=== PATIENT | female | born 1940 | race Caucasian/White ===

== ENCOUNTER 2016-07-02 18:51 | Emergency (ER) | payer OTHER ==
--- NOTE | 2016-07-02 21:42 | DIAGNOSTIC IMAGING REPORT ---
PROCEDURE: CTA THORAX WITH CONTRAST INDICATION: SOB, ELEVATED D-DIMER, +RISK FACTORS TECHNIQUE: 88 ml of Isovue 370 was injected intravenously and axial images were obtained of the entire thorax with 3D sagittal and coronal MIP reconstructions. COMPARISON: Chest x-ray 07/03/2016. FINDINGS: No evidence of pulmonary emboli. Diffuse moderate to severe emphysema. There is ground-glass appearance throughout both or both lungs with thickened septa and mild bilateral pleural effusions. 7 mm right middle lobe and 5 mm left upper lobe nodules. Normal airways. Mild mediastinal and bilateral hilar adenopathy. There is no aortic dissection or aneurysm. Mild coronary atherosclerosis. Normal heart size with a small pericardial effusion versus thickening. Mild hiatal hernia. Mild degenerative changes of the spine. IMPRESSION: 1. CHF with pulmonary edema and bilateral pleural effusions 2. Right middle and left upper lobe nodules. Recommend follow-up CT scan in 6 months 3. Emphysema 4. Mild hiatal hernia. 5. Results discussed with Dr. Lino
--- NOTE | 2016-07-02 21:43 | DIAGNOSTIC IMAGING REPORT ---
PROCEDURE: XR CHEST 1 VIEW INDICATION: SOB TECHNIQUE: Portable AP view 07:48 p.m. COMPARISON: None. FINDINGS: Mild diffuse alveolar opacity with small bilateral pleural effusions. Normal heart size. Minor left basilar atelectasis. No suspicious osseous lesions. IMPRESSION: 1. CHF/fluid overload with mild bibasilar atelectasis
--- NOTE | 2016-07-02 21:44 | DIAGNOSTIC IMAGING REPORT ---
PROCEDURE: US VENOUS - BILATERAL EXT INDICATION: SOB, RECENT HOSPITALIZATION, RECENT LONG CARE RIDE FROM [place] TECHNIQUE: Color Doppler duplex imaging of the deep and superficial venous system without and with compression. COMPARISON: None. FINDINGS: RIGHT LOWER EXTREMITY: Deep and superficial venous system of the right lower extremity is within normal limits. There is no evidence of deep vein thrombosis or superficial thrombophlebitis. LEFT LOWER EXTREMITY: Deep and superficial venous system of the left lower extremity is within normal limits. There is no evidence of deep vein thrombosis or superficial thrombophlebitis. IMPRESSION: 1. Negative venous ultrasound of the bilateral lower extremities.
--- NOTE | 2016-07-02 22:16 | ED ORDER SUMMARY ---
..... Patient: ANURAG MUÑIZ OrderSheet [facility] VisitID: [id number] [address] [place] [address] 75y, F Registration Date/Time: 07/02/2016 ORDER SHEET Weight: 55.7 kg (stated) Allergies: No Known Drug Allergy GENERAL ORDERS: Chest 1V Urgent (19:07/02/2016 Tate Valdovinos) (Ack 19:10 LMuller) (19:44 EHassan R.N.) Energy Systems Laboratory Director (Continuous) (CP) (19:07/02/2016 Ttae Valdovinos) (19:05 Mary Anne R.N.) CBC w Diff Urgent (:07/02/2016 Tate Valdovinos) (Ack 19:10 LMuller) (19:44 EHjosén R.N.) CMP Urgent (:07/02/2016 Tate Valdovinos) (Ack 19:10 LMuller) (19:44 EHjosén R.N.) UA-Culture if indicated Urgent (:07/02/2016 Tate Valdovinos) (Ack 19:10 LMuller) (20:04 CHernandez R.N.) PT with INR Urgent (:07/02/2016 Tate Valdovinos) (Ack 19:10 LMuller) (19:44 Mary Anne R.N.) PTT Urgent (:07/02/2016 Tate Valdovinos) (Ack 19:10 LMuller) (19:44 Cuban R.N.) D-Dimer Urgent (19:07/02/2016 Tate Valdovinos) (Ack 19:10 LMuller) (19:44 Cuban R.N.) Troponin-I Urgent (:07/02/2016 Tate Valdovinos) (Ack 19:10 LMuller) (19:44 Cuban R.N.) BNP Urgent (19:07/02/2016 Tate Valdovinos) (Ack 19:10 LMuller) (19:44 Mary Anne R.N.) Pulse oximeter (:07/02/2016 Tate Valdovinos) (19:05 Mary Anne R.N.) EKG - ER Stat (19:01 07/02/2016 Tate Valdovinos) (19:05 SIDNEYassamichelle R.N.) US Venous Bilat Urgent (19:37 07/02/2016 Tate Valdovinos) (Ack 19:56 Froilanekimana) (21:12 EHassan R.N.) CTA Thorax w Cont (No) (N/A) Urgent (20:30 07/02/2016 Tate Valdovinos) (Ack 20:50 Tala) (21:12 EHassan R.N.) Troponin-I Urgent (21:19 07/02/2016 Tate Valdovinos) (Ack 21:25 Tala) (21:37 EHassan R.N.) MEDICATION ORDERS: IV FLUIDS: IV Saline Lock (19:01 07/02/2016 Tate Valdovinos) (19:06 SIDNEYassamichelle R.N.) Morphine IV 2 mg (HIGH ALERT MEDICATION, NOW) (19:43 07/02/2016 Tate Valdovinos) (Hold 20:10 EHassamichelle R.N.) Ativan IV 0.5 mg (HIGH ALERT MEDICATION, NOW) (20:20 07/02/2016 Mary Anne R.N. verbal order read back to Tate Valdovinos) (20:25 EHassan R.N.) IV NS : initial bolus 500 mL (1000 mL/hr), then none - for X1 (NOW) (20:31 07/02/2016 Tate Valdovinos) (20:47 EHassan R.N.) ORDER SHEET NOTES: [Electronically signed by Rhoda Hong R.N. (22:36 07/02/2016)] [Electronically signed by Tavon Lino Dr. (02:31 07/03/2016)] [Electronically locked/signed by Rhoda Hong R.N. (22:36 07/02/2016)]
--- NOTE | 2016-07-02 22:16 | ED ORDER SUMMARY ---
..... Patient: ANURAG MUÑIZ OrderSheet [facility] VisitID: [id number] [address] [place] [address] 75y, F Registration Date/Time: 07/02/2016 ORDER SHEET Weight: 55.7 kg (stated) Allergies: No Known Drug Allergy GENERAL ORDERS: Chest 1V Urgent (19:07/02/2016 Tate Valdovinos) (Ack 19:10 LMuller) (19:44 EHassan R.N.) Acquisitions Editor (Continuous) (CP) (19:07/02/2016 Tate Valdovinos) (19:05 Mary Anne R.N.) CBC w Diff Urgent (:07/02/2016 Tate Valdovinos) (Ack 19:10 LMuller) (19:44 EHjosén R.N.) CMP Urgent (:07/02/2016 Tate Valdovinos) (Ack 19:10 LMuller) (19:44 EHjosén R.N.) UA-Culture if indicated Urgent (:07/02/2016 Tate Valdovinos) (Ack 19:10 LMuller) (20:04 CHernandez R.N.) PT with INR Urgent (:07/02/2016 Tate Valdovinos) (Ack 19:10 LMuller) (19:44 Mary Anne R.N.) PTT Urgent (:07/02/2016 Tate Valdovinos) (Ack 19:10 LMuller) (19:44 Cuban R.N.) D-Dimer Urgent (19:07/02/2016 Tate Valdovinos) (Ack 19:10 LMuller) (19:44 Cuban R.N.) Troponin-I Urgent (:07/02/2016 Tate Valdovinos) (Ack 19:10 LMuller) (19:44 Cuban R.N.) BNP Urgent (19:07/02/2016 Tate Valdovinos) (Ack 19:10 LMuller) (19:44 Mary Anne R.N.) Pulse oximeter (:07/02/2016 Tate Valdovinos) (19:05 Mary Anne R.N.) EKG - ER Stat (19:01 07/02/2016 Tate Valdovinos) (19:05 SIDNEYassamichelle R.N.) US Venous Bilat Urgent (19:37 07/02/2016 Tate Valdovinos) (Ack 19:56 Froilanekimana) (21:12 EHassan R.N.) CTA Thorax w Cont (No) (N/A) Urgent (20:30 07/02/2016 Tate Valdovinos) (Ack 20:50 Tala) (21:12 EHassan R.N.) Troponin-I Urgent (21:19 07/02/2016 Tate Valdovinos) (Ack 21:25 Tala) (21:37 EHassan R.N.) MEDICATION ORDERS: IV FLUIDS: IV Saline Lock (19:01 07/02/2016 Tate Valdovinos) (19:06 SIDNEYassamichelle R.N.) Morphine IV 2 mg (HIGH ALERT MEDICATION, NOW) (19:43 07/02/2016 Tate Valdovinos) (Hold 20:10 EHassamichelle R.N.) Ativan IV 0.5 mg (HIGH ALERT MEDICATION, NOW) (20:20 07/02/2016 Mary Anne R.N. verbal order read back to Tate Valdovinos) (20:25 EHassan R.N.) IV NS : initial bolus 500 mL (1000 mL/hr), then none - for X1 (NOW) (20:31 07/02/2016 Tate Valdovinos) (20:47 EHassan R.N.) ORDER SHEET NOTES: [Electronically signed by Rhoda Hong R.N. (22:36 07/02/2016)] [Electronically signed by Tavon Lino Dr. (02:31 07/03/2016)] [Electronically locked/signed by Rhoda Hong R.N. (22:36 07/02/2016)]
--- NOTE | 2016-07-02 22:16 | ED CLINICAL REPORT ---
Clinical Report - Physicians/Mid Levels [facility] [address] [place] [address] 07/02/2016 18:53 Patient: ANURAG MUÑIZ Time Seen: 1855. Arrived- By private vehicle. Historian- patient. HISTORY OF PRESENT ILLNESS Chief Complaint: CHEST PAIN. Is still present. It was abrupt in onset and has been intermittent but is not gone now. At its maximum, severity described as moderate. When seen in the E.D., it was almost gone. Modifying factors- worsened by exertion and deep breaths. Relieved by rest. It is described as pressure and it is described as located in the central chest area. No nausea, vomiting or diaphoresis. She has had difficulty breathing. (recent move from [place]. was admitted to the ICU and intubated for 5 days because of respiratory failure just over a month ago. also with history of GI bleed and anemia.). Similar symptoms previously: (a few times). Recent medical care: Not recently seen/assessed. REVIEW OF SYSTEMS All systems otherwise negative, except as recorded above. PAST HISTORY See nurses notes. Pneumonia. COPD - Chronic Obstructive Pulmonary Disease. UTI - Urinary Tract Infection. Restless Legs Syndrome. SURGERIES: Carpal Tunnel Surgery. Cholecystectomy. Hysterectomy. Tonsillectomy. -. SOCIAL HISTORY Smoker- current status unknown. No alcohol use or drug use. Recent travel- (moved from [place] recently). Is an out of state resident. ADDITIONAL NOTES The nursing notes have been reviewed. PHYSICAL EXAM Vital Signs: 07/02/2016 19:03 BP: 117/47. HR: 73. RR: 32. O2 saturation: 98%. Temp: 98.2 F. Pain level now: 5/10. Appearance: Alert. Oriented X3. No acute distress. No marfanoid habitus. Eyes: Pupils equal, round and reactive to light. Eyes normal inspection. ENT: Ears normal. Nose normal. Pharynx normal. Neck: Normal inspection. Neck supple. CVS: Normal heart rate and rhythm. Heart sounds normal. Pulses normal. Respiratory: No respiratory distress. Breath sounds normal. Chest nontender. No rales, rhonchi or wheezes. Abdomen: Soft and nontender. Bowel sounds normal. No mass. Skin: Skin warm and dry. Normal skin color. No rash. Normal skin turgor. Extremities: Extremities exhibit normal ROM. No lower extremity edema. Neuro: Oriented X 3. No motor deficit. No sensory deficit. LABS, X-RAYS, AND EKG EKG: No acute ischemia. Normal sinus rhythm. Rate: 74. Normal P waves. Normal TESS. Normal QRS complex. LVH. Normal axis. Normal ST and T waves, QT and QTc. LVH. Normal sinus. The study has been interpreted contemporaneously. The study has been independently viewed by me. The EKG appears to be a good tracing. Chest X-ray: (1. CHF/fluid overload with mild bibasilar atelectasis). Views: AP. Technique: good. The X-rays were interpreted by the radiologist and discussed with the radiologist. Chest CT: (1. CHF with pulmonary edema and bilateral pleural effusions 2. Right middle and left upper lobe nodules. Recommend follow-up CT scan in 6 months 3. Emphysema 4. Mild hiatal hernia.). Chest CT performed with contrast. Prior studies were not available for comparison. The study was interpreted by the radiologist and discussed with the radiologist. Lower Extremity Sonography: 1. Negative venous ultrasound of the bilateral lower extremities. The exam was performed by a diamond powder technician. The study was interpreted by the radiologist and discussed with the radiologist. Prior studies were not available for comparison. Laboratory Tests: UA-Culture if indicated: (NIA: 07/02/2016 20:00) ( MsgRcvd 07/02/2016 20:31) Final results Test Result Flag Units (Reference) URINE COLOR YELLOW URINE APPEARANCE CLEAR URINE GLUCOSE NEGATIVE (NEGATIVE) URINE BILIRUBIN NEGATIVE (NEGATIVE) URINE KETONE NEGATIVE (NEGATIVE) URINE SPECIFIC GRAVITY 1.010 (1.010-1.030) URINE PH 7.5 (5.0-8.0) URINE PROTEIN NEGATIVE (NEGATIVE) URINE UROBILINOGEN 0.2 EU/dL (0.2-1.0) URINE NITRITE NEGATIVE (NEGATIVE) URINE BLOOD TRACE-INTACT (NEGATIVE) URINE LEUK ESTERASE POSITIVE (NEGATIVE) URINE RBC NONE SEEN rbc/hpf (0-1) URINE WBC 5-10 wbc/hpf (0-1) URINE EPITHELIAL CELLS 1-3 EPI/hpf (0-5) URINE BACTERIA TRACE (<1+) (NONE SEEN) URINE COMMENT CULTURE INDICATED URINE CULTURES ARE SET-UP BASED ON THE FOLLOWING CRITERIA:POSITIVE NITRITEPOSITIVE LEUKOCYTE ESTERASEGREATER THAN 10 WHITE BLOOD CELLSMODERATE (2+) OR GREATER BACTERIA CBC w Diff: (NIA: 07/02/2016 19:05) ( [facility] 07/02/2016 19:18) Final results Test Result Flag Units (Reference) WHITE BLOOD COUNT 8.8 K/uL (4.5-11.5) RED BLOOD COUNT 2.86 L M/uL (4.00-5.20) HEMOGLOBIN 8.7 L gm/dL (12.0-16.0) HEMATOCRIT 26.7 L % (36.0-46.0) MEAN CELL VOLUME 93 fL (80-100) MEAN CORPUSCULAR HGB 31 pg (26-34) MEAN CORPUSCULAR HGB CONC 33 g/dL (31-37) RED CELL DISTRIBUTION WIDTH 15.9 H % (11.6-14.8) PLATELET COUNT 463 H K/uL (150-400) NEUTROPHIL % 57.4 % (50-75) LYMPH % 27.9 % (25-40) MONO % 13.3 % (3-14) EOSINOPHIL % 1.0 % (0-4) BASOPHIL % 0.4 % (0-2) PT with INR: (NIA: 07/02/2016 19:05) ( [facility] 07/02/2016 19:34) Final results Test Result Flag Units (Reference) INR 1.0 (0.8-1.2) Low Intensity Therapy: INR 1.5-2.0 PT range 18.5-23.1Mod.Intensity Therapy: INR 2.0-3.0 PT range 23.1-31.5High Intensity Therapy: INR 2.5-3.5 PT range 27.4-35.5High Intensity Therapy 2: INR 3.0-4.0 PT range 31.5-39.3 APTT 29 SECONDS (24-34) D-DIMER QUANTITATIVE 0.76 H ug/mLFEU (0.27-0.52) The primary value of this quantitative assay relates toits negative predictive value (i.e. exclusion) of pulmonaryembolism/deep vein thrombosis/DIC.Elevated levels of d-dimer may also occur with:, age, cancer, inflammation, liver disease,post-op, infection, hematoma, coronary disease, peripheralarteriopathy, bleeding disorders and thrombolytic treatment.Results should be correlated with other clinical andradiological data.Testing Methodology: Latex Immunoassay Troponin-I: (NIA: 07/02/2016 21:20) ( [facility] 07/02/2016 22:00) Final results Test Result Flag Units (Reference) TROPONIN I <0.05 ng/mL (0.00-1.5) TROPONIN REFERENCE RANGE:<0.1 NEGATIVE0.1-1.5 INDETERMINANT>1.5 POSITIVE BNP: (NIA: 07/02/2016 19:05) ( [facility] 07/02/2016 19:45) Final results Test Result Flag Units (Reference) B-TYPE NATRIURETIC PEPTIDE 161 H pg/ml (5-100) CMP: (NIA: 07/02/2016 19:05) ( [facility] 07/02/2016 19:43) Final results Test Result Flag Units (Reference) GLUCOSE 93 mg/dL (70-110) BUN 21 H mg/dL (7-18) CREATININE 1.0 mg/dL (0.6-1.3) Estimated GFR 57.45 mL/min Estimated GFR- >60 mL/min Note: Persistent reduction over 3 months in eGFR<60 mL/min/1.73 m2 defines CKD. Patients with eGFR values>=60 mL/min/1.73 m2 may also have CKD if evidence ofpersistent proteinuria. Additional information may be foundat www.kidney.org. SODIUM 140 mmol/L (136-145) POTASSIUM 4.3 mmol/L (3.5-5.1) CHLORIDE 105 mmol/L (98-107) CARBON DIOXIDE 24 mmol/L (21-32) CALCIUM 8.7 mg/dL (8.5-10.1) TOTAL PROTEIN 7.1 g/dL (6.4-8.2) ALBUMIN 3.4 g/dL (3.3-5.0) BILIRUBIN, TOTAL 0.5 mg/dL (0.0-1.0) ALKALINE PHOSPHATASE 66 U/L (46-116) AST (SGOT) 16 U/L (15-37) ALT (SGPT) 21 U/L (12-78) TROPONIN I <0.05 ng/mL (0.00-1.5) TROPONIN REFERENCE RANGE:<0.1 NEGATIVE0.1-1.5 INDETERMINANT>1.5 POSITIVE . PROGRESS AND PROCEDURES Course of Care: 22:10 07/02/16. H&P from Dr. Hartman confirmed by my own and agree with his findings. No PE/DVT and CE's neg x 2. Pt has cardiology f/u. Pt is currently pain free. Disposition: Discharged home in good and improved condition. Condition: good. CLINICAL IMPRESSION Pulmonary nodule right middle lobe and left upper lobe. Atypical chest pain .12 lead EKG performed. INSTRUCTIONS Your Current Medications: CONTINUE TAKING THE FOLLOWING MEDICATIONS: Advair Diskus Inhalation. Albuterol Sulfate ER Oral. Lisinopril Oral. Spiriva HandiHaler Inhalation. TraZODone HCl Oral. Prescription Medications: Vistaril 50 mg: take 1 orally every 6 hours as needed for anxiety. Dispense twenty (20). No refill. Substitution is permissible. Follow-up: Follow up with your doctor in about two days. Call for an appointment. Blood pressure screening was not performed during this visit because the patient has an active diagnosis of hypertension. (Electronically signed by Tavon Lino Dr. 07/03/2016 2:31)
--- NOTE | 2016-07-02 22:16 | ED NURSING NOTES ---
Clinical Report - Nurses [facility] [address] [place] [address] 07/02/2016 18:53 Patient: ANURAG MUÑIZ TRIAGE Triage time 1901 PM. Acuity: LEVEL 2. Chief Complaint: CHEST PAIN and DISCOMFORT and (SOB). Alert. No acute distress. SEPSIS SCREEN: Sepsis Screen. Negative (no infection suspected/documented). EZE COMA SCORE: Eze Coma Scale: 15- eyes open spontaneously (4); best verbal response- oriented x 4 (5); best motor response- obeys commands (6). --19:47 Rhoda Hong R.N. 19:03 07/02/16. BP: 117/47 (regular adult cuff) taken on the left arm, via an automated monitor, while sitting. HR: 73. RR: 32. O2 saturation: 98%. Temp: 98.2 F (oral). Pain level now: 510. --19:47 Rhoda Hong R.N. Weight: 55.7 kg stated. Height/Length: 64 inches Per Patient. BMI: 21.1. --19:07 Rhoda Hong R.N. Medications Advair Diskus Inhalation. --19:10 Rhoda Hong R.N. Spiriva HandiHaler Inhalation. --19:10 Rhoda Hong R.N. Lisinopril Oral. --19:10 Rhoda Hong R.N. TraZODone HCl Oral. --19:11 Rhoda Hogn R.N. Albuterol Sulfate ER Oral. --19:11 Rhoda Hong R.N. Medication/allergy information source: the patient. --19:47 Rhoda Hong R.N. Allergies No Known Drug Allergy. --19:08 Rhoda Hong R.N. History Arrived by private vehicle. Historian: patient and family. Primary physician (Dr. Brian Tripathi). ( Pt has been feeling "lousy" Pt states in May was hospitalized for pneumonia and "intubated and was there for 10 days and was told she had some sort of heart disease" unsure of what type and is getting worked up here (has an appointment in August" Pt has been experiencing CP, SOB and jaw pain for a couple of days. Pt does seem very anxious at times and burst of crying when speaking to her. Pt states now having no pain/CP. Pt feels "labored breathing" Here for further evaluation). Onset. (3 days). She has had difficulty breathing. No nausea, vomiting, fever or cough. Treatment GYN: None. PAST MEDICAL HX: Immunizations: up-to-date. SOCIAL HX: Former smoker, end date 05/2016. No alcohol use or drug use. ABUSE ASSESSMENT: No report of abuse. SELF HARM ASSESSMENT: A self harm assessment was performed. The patient answered "no" to the question "Do you have thoughts of harming or killing yourself?" and "Have you recently had thoughts about harming or killing others?". FALL RISK ASSESSMENT: Fall risk assessment completed. No fall risk identified. NUTRITIONAL RISK ASSESSMENT: The nutritional risk assessment revealed no deficiencies. FUNCTIONAL ASSESSMENT: Functional assessment: no impairments noted. LEARNING NEEDS ASSESSMENT: The learning needs assessment revealed no barriers. --19:47 Rhdoa Hong R.N. PROBLEMS: Pneumonia. COPD - Chronic Obstructive Pulmonary Disease. UTI - Urinary Tract Infection. Immunizations. --19:11 Rhoda Hong R.N. Restless Legs Syndrome. --21:54 Rhoda Hong R.N. ADDITIONAL SURGERIES: Carpal Tunnel Surgery. Cholecystectomy. Hysterectomy. Tonsillectomy. --19:12 Rhoda Hong R.N. Interventions ID band on patient. --19:47 Rhoda Hong R.N. PHYSICAL ASSESSMENT To room via wheelchair. GENERAL / NEURO / PSYCH: Alert. Oriented X 4. Appears anxious. HEENT: Mucous membranes are pink. RESPIRATORY: Moderate respiratory distress. Decreased breath sounds in the right mid-lung posteriorly; decreased breath sounds in the left mid-lung posteriorly. No crackles. CVS: Heart sounds within normal limits. Pulses within normal limits. Capillary refill less than 2 seconds. GI / : Abdomen soft and nontender. EXTREMITIES: No lower extremity edema. SKIN: Skin is warm and dry. Normal skin turgor. --19:17 Rhoda Hong R.N. NURSING PROGRESS NOTES 19:05 07/02/2016 Site #1 started via IV in the left antecubital space with an 20g angiocath; one attempt. Blood drawn: rainbow set. Labeled in the presence of the patient and sent to the lab. --19:06 Rhoda Hong R.N. The initial plan of care for this patient has been created This plan of care was discussed with the patient. Oxygen administered by nasal cannula at 2 liters. professor of business, pulse oximeter and NIBP monitor placed on patient; monitor alarms on. EKG time: (1902 PM). EKG was performed by a nurse and shown to the ED physician. Patient ID band checked for patient name, birthdate and medical record number: patient confirmed. Blood samples drawn from the left antecubital space by nurse per protocol ; labeled in presence of the patient and sent to lab: rainbow set. Patient gowned. Warming measures: blanket applied. Reassurance given. Two patient identifiers checked. Call light placed in reach. Side rails up x 1. --19:18 Rhoda Hong R.N. Cardiac rhythm: normal sinus rhythm. ( Pt very anxious, crying "not sure to why she is crying" reassurance given, family at bedside.). --19:20 Rhoda Hong R.N. 19:15 07/02/16. BP: 115/44. HR: 85. RR: 24. O2 saturation: 96%. Pain level now: 03/23. --19:20 Rhoda Hong R.N. Cardiac rhythm: normal sinus rhythm. Oxygen administered by nasal cannula at 2 liters. professor of business, pulse oximeter and NIBP monitor placed on patient. Reassurance given. ( Pt feels "labored breathing" only noted at times when she gets emotional. Pt did not want to received 'morphine since I have no pain" explanation given as to the reason, not opposed to getting "something for anxiety". Will monitor). RESPIRATORY: The patient reports difficulty breathing. CVS: Denies chest pain. Call light placed in reach. Side rails up x 2. Bed placed in lowest position. Brakes of bed on. --20:15 Rhoda Hong R.N. 20:11 07/02/16. BP: 123/54 (small adult cuff) taken on the right arm, via an automated monitor, while sitting. HR: 84. RR: 25. O2 saturation: 99% on nasal cannula at 2 liters/minute. Pain level now: 0/10. --20:15 Rhoda Hong R.N. 20:25 07/02/2016 Ativan (LORazepam) IVP 0.5 mg given over 30 second(s) via site #1. Allergies verified, confirmed 5 rights and sedative warning given to the patient and patient's family. IV patency established. IV site checked: no pain, redness, or swelling. IV flushed thoroughly pre- and post-medication administration. IVP given by RN. --20:25 Rhoda Hong R.N. 20:47 07/02/2016 Started bag #1 500 mL IV Fluids IV NS (Saline); at 500 mL/hr over 1 hour(s) via site #1 via IV pump. Allergies verified and confirmed 5 rights. Completed per protocol. --20:47 Rhoda Hong R.N. 20:47 07/02/2016 Ativan IVP Response: no adverse reaction pain is improving. Symptoms have improved the patient feels better. --20:47 Rhoda Hong R.N. 21:00 07/02/16. BP: 116/69 (small adult cuff) taken on the right arm, via an automated monitor, while lying. HR: 75. RR: 15. O2 saturation: 99% on nasal cannula at 2 liters/minute. Pain level now: 0/10. --21:15 Rhoda Hong R.N. Cardiac rhythm: normal sinus rhythm. professor of business, pulse oximeter and NIBP monitor placed on patient; monitor alarms on. Reassurance given. The patient is calm and resting quietly. Overall patient status- she states feels better. ( Pt states "feeling better breathing better" now to CTA, US obtained and negative. Will monitor). RESPIRATORY: No respiratory distress present. No decreased breath sounds, crackles or wheezes. SKIN: Skin color normal. No diaphoresis noted. Patient transported to [place]. (2114 PM). Call light placed in reach. --21:15 Rhoda Hong R.N. 21:55 07/02/2016 IV Fluids IV NS Discontinued: bag #1 completed. Total amount infused: 500 mL. IV patency established. IV site checked: no pain, redness, or swelling. IV flushed thoroughly. --21:55 Rhoda Hong R.N. Cardiac rhythm: normal sinus rhythm. Monitoring of patient in place. Reassurance given. ( Pt MENDOZA noted after walking to the BR, O2 at 79 with out oxygen. Now resting O2 placed, pt states having O2 at home at 2-3 liters.). CVS: Denies chest pain. Normal sinus rhythm noted. SKIN: Skin is warm. Skin color within normal limits. Call light placed in reach. Side rails up x 2. Bed placed in lowest position. --22:10 Rhoda Hong R.N. 22:07 07/02/16. BP: 136/49 (small adult cuff) taken on the right arm, while sitting. HR: 92. RR: 30. O2 saturation: 79% on room air. Temp: 98 F (oral). Pain level now: 0/10. Additional comments: post walking. --22:10 Rhoda Hong R.N. DISPOSITION / DISCHARGE 22:34 07/02/2016 Site #1 removed upon discharge. Catheter intact. Manual pressure, pressure dressing, bandaid and bandage applied. --22:34 Rhoda Hong R.N. Departure time: 2235 PM. The goals identified in the patient's plan of care were met. No learning barriers present. Discharge instructions provided and reviewed with the patient. Reviewed medication(s) side effects, precautions, dosing and course information. Prescription(s) given to the patient. Patient verbalized understanding. Written instructions provided in [place]. No treatment instructions or referrals given to the patient. The patient was discharged by the physician. She was discharged home and accompanied by family. She left the Emergency Department ambulatory and via private vehicle. Parent driving. FALL RISK ASSESSMENT: Fall risk assessment completed. No fall risk identified. EZE COMA SCORE: Eze Coma Scale: 15- eyes open spontaneously (4); best verbal response- oriented x 4 (5); best motor response- obeys commands (6). --22:36 Rhoda Hong R.N. 22:15 07/02/16. BP: 115/85. HR: 89. RR: 28. O2 saturation: 100% on room air. Temp: 98 F (oral). Pain level now: 0/10. --22:36 Rhoda Hong R.N. Locked/Released at 07/02/2016 22:36 by Rhoda Hong R.N.
--- NOTE | 2016-07-03 02:32 | ED DISCHARGE INSTRUCTIONS ---
Patient: ANURAG MUÑIZ General Instructions [facility] VisitID: [id number] [place] [address] 75y, F Registration Date/Time: 07/02/2016 Pulmonary nodule right middle lobe and left upper lobe. Atypical chest pain .12 lead EKG performed. INSTRUCTIONS Your Current Medications: CONTINUE TAKING THE FOLLOWING MEDICATIONS: Advair Diskus Inhalation. Albuterol Sulfate ER Oral. Lisinopril Oral. Spiriva HandiHaler Inhalation. TraZODone HCl Oral. Prescription Medications: Vistaril 50 mg: take 1 orally every 6 hours as needed for anxiety. Dispense twenty (20). No refill. Substitution is permissible. Follow-up: Follow up with your doctor in about two days. Call for an appointment. Blood pressure screening was not performed during this visit because the patient has an active diagnosis of hypertension. ADDITIONAL INFORMATION Chest Pain, Noncardiac Based on your visit today, the exact cause of your chest pain is not certain. Your condition does not seem serious and your pain does not appear to be coming from your heart. However, sometimes the signs of a serious problem take more time to appear. Therefore, please watch for the warning signs listed below. Home Care: Rest today and avoid strenuous activity. Take any prescribed medicine as directed. Follow Up with your doctor or this facility as instructed or if you do not start to feel better within 24 hours. Get Prompt Medical Attention if any of the following occur: A change in the type of pain: if it feels different, becomes more severe, lasts longer, or begins to spread into your shoulder, arm, neck, jaw or back Shortness of breath or increased pain with breathing Cough with dark colored sputum (phlegm) or blood Weakness, dizziness, or fainting Fever of 100.4F (38C) or higher, or as directed by your healthcare provider Swelling, pain or redness in one leg Pulmonary Nodule A pulmonary nodule is a finding on a chest x-ray. It is usually found on an x-ray taken for other reasons.It is a single lesion up to about an inch in size, surrounded by normal lung tissue. Most nodules are benign (non-cancerous). However, a nodule could be an early stage of primary lung cancer; or, it may be a sign of cancer that has spread from another part of the body (metastatic). Once a nodule is found on a chest x-ray, further testing is needed to determine if it is benign or outpatient to diagnose your nodule. Comparison of todays x-ray to prior x-rays Chest CT scan Bronchoscopy (a procedure that allows the doctor to see the air passages inside the lung) Needle biopsy Test Results: If your nodule proves to be benign, continued follow up over the next five years is usually advised. If the tests cannot tell if your nodule is benign or malignant, then, surgery may be advised. If your tests show your nodule is definitely malignant, surgery will probably be advised. The best survival rates from lung cancer occur when the primary tumor is small (less than one inch). Follow your doctor's advice regarding the timing of further testing. Prompt treatment gives the best chance for curing lung cancer. Prevention Smoking remains one of the greatest risk factors for lung cancer. If you smoke, it is essential that you quit in order to lower your risk of lung cancer. Talk to your doctor about ways to help you quit. Visit the following links for more information: www.smokefree.gov/pubs/clearing_the_air.pdf www.smokefree.gov www.quitnet.com Home Care: Most patients with a pulmonary nodule will have no symptoms. Therefore, no special home care is required.You may resume your usual activities and diet. Follow Up with your doctor or as advised by our staff. Keep your appointments for further testing. You can get more information about lung cancer from the following: [place] [employer] [phone] lung.org National Cancer [place] [phone] www.cancer.gov Return Promptly or contact your doctor if any of the following occur: Fever of 100.4F (38C) or higher, or as directed by your healthcare provider Coughing up blood Chest pain or shortness of breath Unintended weight change Hydroxyzine Pamoate Oral capsule What is this medicine? HYDROXYZINE (christopher DROX i zeen) is an antihistamine. This medicine is used to treat allergy symptoms. It is also used to treat anxiety and tension. This medicine can be used with other medicines to induce sleep before surgery. How should I use this medicine? Take this medicine by mouth with a full glass of water. Follow the directions on the prescription label. You may take this medicine with food or on an empty stomach. Take your medicine at regular intervals. Do not take your medicine more often than directed. Talk to your dock clerk regarding the use of this medicine in children. Special care may be needed. While this drug may be prescribed for children as young as 6 years of age for selected conditions, precautions do apply. Patients over 65 years old may have a stronger reaction and need a smaller dose. What side effects may I notice from receiving this medicine? Side effects that you should report to your doctor or health eye care professional as soon as possible: fast or irregular heartbeat difficulty passing urine seizures slurred speech or confusion tremor Side effects that usually do not require medical attention (report to your doctor or health eye care professional if they continue or are bothersome): constipation drowsiness fatigue headache stomach upset What may interact with this medicine? alcohol barbiturate medicines for sleep or seizures medicines for colds, allergies medicines for depression, anxiety, or emotional disturbances medicines for pain medicines for sleep muscle relaxants What if I miss a dose? If you miss a dose, take it as soon as you can. If it is almost time for your next dose, take only that dose. Do not take double or extra doses. Where should I keep my medicine? Keep out of the reach of children. Store at room temperature between 15 and 30 degrees C (59 and 86 degrees F). Keep container tightly closed. Throw away any unused medicine after the expiration date. What should I tell my health care provider before I take this medicine? They need to know if you have any of these conditions: any chronic illness difficulty passing urine glaucoma heart disease kidney disease liver disease lung disease an unusual or allergic reaction to hydroxyzine, cetirizine, other medicines, foods, dyes, or preservatives or trying to get breast-feeding What should I watch for while using this medicine? Tell your doctor or health eye care professional if your symptoms do not improve. You may get drowsy or dizzy. Do not drive, use machinery, or do anything that needs mental alertness until you know how this medicine affects you. Do not stand or sit up quickly, especially if you are an older patient. This reduces the risk of dizzy or fainting spells. Alcohol may interfere with the effect of this medicine. Avoid alcoholic drinks. Your mouth may get dry. Chewing sugarless gum or sucking hard candy, and drinking plenty of water may help. Contact your doctor if the problem does not go away or is severe. This medicine may cause dry eyes and blurred vision. If you wear contact lenses you may feel some discomfort. Lubricating drops may help. See your eye doctor if the problem does not go away or is severe. If you are receiving skin tests for allergies, tell your doctor you are using this medicine. You have been given the following additional information: Chest Pain, Noncardiac Pulmonary Nodule, Solitary Hydroxyzine Pamoate Oral capsule (Electronically signed by Tavon Lino Dr. 07/03/2016 2:31)
--- NOTE | 2016-07-03 02:32 | ED MAR SUMMARY ---
..... Medication Administration Record [facility] [address] [place] [address] Patient: ANURAG MUÑIZ Visit ID: [id number] 75y, F Weight: 55.7 kg Height/Length: 64 in BMI: 21.1 ALLERGIES: No Known Drug Allergy Given 20:25 07/02/2016 Rhoda Hong R.N. Medication Administered: ATIVAN [IVP] (LORAZEPAM), Dose: 0.5 mg IVP over 30 second(s), Site: #1 left AC. Medication Ordered: Ativan IV 0.5 mg (HIGH ALERT MEDICATION, NOW). Start 20:47 07/02/2016 Rhoda Hong RConcettaNConcetta, Stop 21:55 07/02/2016 Rhoda Hong R.N. Medication Administered: IV NS (SALINE), Dose: IV Fluids over 1 hour(s), Rate: 500 mL/hr, Dispensed: 500 mL bag, Site: #1 left AC. Medication Ordered: IV NS : initial bolus 500 mL (1000 mL/hr), then none - for X1 (NOW).
--- NOTE | 2016-07-03 02:32 | ED MED RECONCILIATION SUMMARY ---
Patient: ANURAG MUÑIZ Medication Reconciliation Report [facility] VisitID: [id number] [address] [place] [address] 75y, F Registration Date/Time: 07/02/2016 Weight: 55.7 kg Height/Length: 64 in. BMI: 21.1 ALLERGIES: No Known Drug Allergy The patient's Home Medications are listed below: CONTINUE TAKING THE FOLLOWING MEDICATIONS: Advair Diskus Inhalation Albuterol Sulfate ER Oral Lisinopril Oral Spiriva HandiHaler Inhalation TraZODone HCl Oral The source(s) of the original Home Medication information: patient The following Medications were given to the patient in the Emergency Department: Ativan [IVP] IVP 0.5 mg, administered: 07/02/2016 8:25:00 PM IV NS IV Fluids bolus 0, then 500 mL/hr, administered: 07/02/2016 8:47:00 PM The following Medications were prescribed to the patient: Vistaril 50 mg: take 1 orally every 6 hours as needed for anxiety. Dispense twenty (20). No refill. Substitution is permissible. -- Tavon Lino Dr.
--- NOTE | 2016-07-03 02:32 | ED MAR SUMMARY ---
..... Medication Administration Record [facility] [address] [place] [address] Patient: ANURAG MUÑIZ Visit ID: [id number] 75y, F Weight: 55.7 kg Height/Length: 64 in BMI: 21.1 ALLERGIES: No Known Drug Allergy Given 20:25 07/02/2016 Rhoda Hong R.N. Medication Administered: ATIVAN [IVP] (LORAZEPAM), Dose: 0.5 mg IVP over 30 second(s), Site: #1 left AC. Medication Ordered: Ativan IV 0.5 mg (HIGH ALERT MEDICATION, NOW). Start 20:47 07/02/2016 Rhoda Hong RConcettaNConcetta, Stop 21:55 07/02/2016 Rhoda Hong R.N. Medication Administered: IV NS (SALINE), Dose: IV Fluids over 1 hour(s), Rate: 500 mL/hr, Dispensed: 500 mL bag, Site: #1 left AC. Medication Ordered: IV NS : initial bolus 500 mL (1000 mL/hr), then none - for X1 (NOW).
--- NOTE | 2016-07-03 02:32 | ED DISCHARGE INSTRUCTIONS ---
Patient: ANURAG MUÑIZ General Instructions [facility] VisitID: [id number] [place] [address] 75y, F Registration Date/Time: 07/02/2016 Pulmonary nodule right middle lobe and left upper lobe. Atypical chest pain .12 lead EKG performed. INSTRUCTIONS Your Current Medications: CONTINUE TAKING THE FOLLOWING MEDICATIONS: Advair Diskus Inhalation. Albuterol Sulfate ER Oral. Lisinopril Oral. Spiriva HandiHaler Inhalation. TraZODone HCl Oral. Prescription Medications: Vistaril 50 mg: take 1 orally every 6 hours as needed for anxiety. Dispense twenty (20). No refill. Substitution is permissible. Follow-up: Follow up with your doctor in about two days. Call for an appointment. Blood pressure screening was not performed during this visit because the patient has an active diagnosis of hypertension. ADDITIONAL INFORMATION Chest Pain, Noncardiac Based on your visit today, the exact cause of your chest pain is not certain. Your condition does not seem serious and your pain does not appear to be coming from your heart. However, sometimes the signs of a serious problem take more time to appear. Therefore, please watch for the warning signs listed below. Home Care: Rest today and avoid strenuous activity. Take any prescribed medicine as directed. Follow Up with your doctor or this facility as instructed or if you do not start to feel better within 24 hours. Get Prompt Medical Attention if any of the following occur: A change in the type of pain: if it feels different, becomes more severe, lasts longer, or begins to spread into your shoulder, arm, neck, jaw or back Shortness of breath or increased pain with breathing Cough with dark colored sputum (phlegm) or blood Weakness, dizziness, or fainting Fever of 100.4F (38C) or higher, or as directed by your healthcare provider Swelling, pain or redness in one leg Pulmonary Nodule A pulmonary nodule is a finding on a chest x-ray. It is usually found on an x-ray taken for other reasons.It is a single lesion up to about an inch in size, surrounded by normal lung tissue. Most nodules are benign (non-cancerous). However, a nodule could be an early stage of primary lung cancer; or, it may be a sign of cancer that has spread from another part of the body (metastatic). Once a nodule is found on a chest x-ray, further testing is needed to determine if it is benign or outpatient to diagnose your nodule. Comparison of todays x-ray to prior x-rays Chest CT scan Bronchoscopy (a procedure that allows the doctor to see the air passages inside the lung) Needle biopsy Test Results: If your nodule proves to be benign, continued follow up over the next five years is usually advised. If the tests cannot tell if your nodule is benign or malignant, then, surgery may be advised. If your tests show your nodule is definitely malignant, surgery will probably be advised. The best survival rates from lung cancer occur when the primary tumor is small (less than one inch). Follow your doctor's advice regarding the timing of further testing. Prompt treatment gives the best chance for curing lung cancer. Prevention Smoking remains one of the greatest risk factors for lung cancer. If you smoke, it is essential that you quit in order to lower your risk of lung cancer. Talk to your doctor about ways to help you quit. Visit the following links for more information: www.smokefree.gov/pubs/clearing_the_air.pdf www.smokefree.gov www.quitnet.com Home Care: Most patients with a pulmonary nodule will have no symptoms. Therefore, no special home care is required.You may resume your usual activities and diet. Follow Up with your doctor or as advised by our staff. Keep your appointments for further testing. You can get more information about lung cancer from the following: [place] [employer] [phone] lung.org [employer] [phone] www.cancer.gov Return Promptly or contact your doctor if any of the following occur: Fever of 100.4F (38C) or higher, or as directed by your healthcare provider Coughing up blood Chest pain or shortness of breath Unintended weight change Hydroxyzine Pamoate Oral capsule What is this medicine? HYDROXYZINE (christopher DROX i zeen) is an antihistamine. This medicine is used to treat allergy symptoms. It is also used to treat anxiety and tension. This medicine can be used with other medicines to induce sleep before surgery. How should I use this medicine? Take this medicine by mouth with a full glass of water. Follow the directions on the prescription label. You may take this medicine with food or on an empty stomach. Take your medicine at regular intervals. Do not take your medicine more often than directed. Talk to your industrial laborer regarding the use of this medicine in children. Special care may be needed. While this drug may be prescribed for children as young as 6 years of age for selected conditions, precautions do apply. Patients over 65 years old may have a stronger reaction and need a smaller dose. What side effects may I notice from receiving this medicine? Side effects that you should report to your doctor or health lead care manager as soon as possible: fast or irregular heartbeat difficulty passing urine seizures slurred speech or confusion tremor Side effects that usually do not require medical attention (report to your doctor or health lead care manager if they continue or are bothersome): constipation drowsiness fatigue headache stomach upset What may interact with this medicine? alcohol barbiturate medicines for sleep or seizures medicines for colds, allergies medicines for depression, anxiety, or emotional disturbances medicines for pain medicines for sleep muscle relaxants What if I miss a dose? If you miss a dose, take it as soon as you can. If it is almost time for your next dose, take only that dose. Do not take double or extra doses. Where should I keep my medicine? Keep out of the reach of children. Store at room temperature between 15 and 30 degrees C (59 and 86 degrees F). Keep container tightly closed. Throw away any unused medicine after the expiration date. What should I tell my health care provider before I take this medicine? They need to know if you have any of these conditions: any chronic illness difficulty passing urine glaucoma heart disease kidney disease liver disease lung disease an unusual or allergic reaction to hydroxyzine, cetirizine, other medicines, foods, dyes, or preservatives or trying to get breast-feeding What should I watch for while using this medicine? Tell your doctor or health lead care manager if your symptoms do not improve. You may get drowsy or dizzy. Do not drive, use machinery, or do anything that needs mental alertness until you know how this medicine affects you. Do not stand or sit up quickly, especially if you are an older patient. This reduces the risk of dizzy or fainting spells. Alcohol may interfere with the effect of this medicine. Avoid alcoholic drinks. Your mouth may get dry. Chewing sugarless gum or sucking hard candy, and drinking plenty of water may help. Contact your doctor if the problem does not go away or is severe. This medicine may cause dry eyes and blurred vision. If you wear contact lenses you may feel some discomfort. Lubricating drops may help. See your eye doctor if the problem does not go away or is severe. If you are receiving skin tests for allergies, tell your doctor you are using this medicine. You have been given the following additional information: Chest Pain, Noncardiac Pulmonary Nodule, Solitary Hydroxyzine Pamoate Oral capsule (Electronically signed by Taovn Lino Dr. 07/03/2016 2:31)
--- NOTE | 2016-07-03 02:32 | ED MED RECONCILIATION SUMMARY ---
Patient: ANURAG MUÑIZ Medication Reconciliation Report [facility] VisitID: [id number] [address] [place] [address] 75y, F Registration Date/Time: 07/02/2016 Weight: 55.7 kg Height/Length: 64 in. BMI: 21.1 ALLERGIES: No Known Drug Allergy The patient's Home Medications are listed below: CONTINUE TAKING THE FOLLOWING MEDICATIONS: Advair Diskus Inhalation Albuterol Sulfate ER Oral Lisinopril Oral Spiriva HandiHaler Inhalation TraZODone HCl Oral The source(s) of the original Home Medication information: patient The following Medications were given to the patient in the Emergency Department: Ativan [IVP] IVP 0.5 mg, administered: 07/02/2016 8:25:00 PM IV NS IV Fluids bolus 0, then 500 mL/hr, administered: 07/02/2016 8:47:00 PM The following Medications were prescribed to the patient: Vistaril 50 mg: take 1 orally every 6 hours as needed for anxiety. Dispense twenty (20). No refill. Substitution is permissible. -- Tavon Lino Dr.
== END 2016-07-02 22:37 | disposition home or self-care (01) ==
LOC: ED SRH 18:51
DX: R91.8 Other nonspecific abnormal finding of lung field (principal); R07.89 Other chest pain; J44.9 Chronic obstructive pulmonary disease, unspecified
CPT/HCPCS: 90004; 90070; 90100; 90469; 90616; 91320; 91556; 91672; 94001; 94060; 95059